=== PATIENT | female | born 1955 | race Caucasian/White ===

== ENCOUNTER → 2018-01-15 | Outpatient (CLI) | payer MEDICARE | END | disposition home or self-care (01) | LOC: RAH 13:42 | PROVIDERS: ATTEND Physical Medicine & Rehabilitation | DX: M19.011 Primary osteoarthritis, right shoulder (principal); M47.892 Other spondylosis, cervical region | CPT/HCPCS: 72050; 73030 ==

== ENCOUNTER → 2019-03-08 | Outpatient (CLI) | payer OTHER | END | disposition home or self-care (01) | LOC: OIH 15:28 | PROVIDERS: ATTEND Internal Medicine Cardiovascular Disease | DX: Z13.6 Encounter for screening for cardiovascular disorders (principal) | CPT/HCPCS: 75571 ==